=== PATIENT | female | born 1970 | race Caucasian/White ===

== ENCOUNTER 2017-02-14 20:46 | Emergency (ER) | payer OTHER ==
[~2017-02-14] VITALS: Ht 165.1 cm; Wt 87.0 kg
[~2017-02-14 20:46] MED LIST: SERT100T PO; TRAZ-129 PO
[2017-02-14] MEDS ORDERED: LIDOCAINE HCL 1% 20ML VIAL (Pyxis) INJ MC ONE (23:00)
[2017-02-14] MEDS ORDERED: CEFTRIAXONE SODIUM 250 MG/VIAL IM ONE (23:00)
[2017-02-14] MEDS ORDERED: HYDROCODONE/ACETAMINOPHEN 5/325MG TABLET PO ONE (23:30)
[2017-02-15 00:21] VITALS: BP 134/83
== END 2017-02-15 00:23 | disposition home or self-care (01) ==
LOC: ER 02-15 00:11
DX: T81.4XXA Infection following a procedure, initial encounter (principal); I10 Essential (primary) hypertension; Z86.73 Personal history of transient ischemic attack (TIA), and cerebral infarction without residual deficits; Z87.891 Personal history of nicotine dependence
CPT/HCPCS: 96372; 99283; J0696; J3490; Z7610

== ENCOUNTER 2017-02-22 11:43 | Emergency (ER) | payer OTHER ==
[~2017-02-22] VITALS: Ht 165.1 cm; Wt 87.5 kg
[2017-02-22 12:23] LABS: BASOPHILS % 0.7 % (0.0-2.0); EOSINOPHILS % 3.3 % (0.0-5.0); HEMATOCRIT. 37.6 % (36.0-48.0); HEMOGLOBIN. 12.7 g/dL (12.0-16.0); LYMPHOCYTES % 21.2 % (20.0-50.0); MEAN CORPUSCULAR HEMOGLOBIN 29.5 pg (28.0-32.0); MEAN CORPUSCULAR VOLUME 87.3 fL (81.0-99.0); MEAN PLATELET VOLUME 8.1 fl (7.4-10.4); MONOCYTES % 6.5 % (2.0-8.0); NEUTROPHILS % 68.3 % (40.0-76.0); PLATELET 228 x1000/uL (130-400); RED CELL DISTRIBUTION WIDTH 14.6 % (11.6-14.6)
[2017-02-22 12:26] LABS: CHLORIDE 106 mEq/L (98-107)
[2017-02-22 12:34] LABS: CARBON DIOXIDE 27 mEq/L (21-32); ETHANOL BLOOD < 10 mg/dL
[2017-02-22 12:37] LABS: CLARITY URINE CLEAR (CLEAR); COLOR URINE YELLOW (YELLOW); GLUCOSE URINE NEGATIVE (NEGATIVE); KETONES URINE NEGATIVE (NEGATIVE); LEUKOCYTE ESTERASE URINE NEGATIVE (NEGATIVE); NITRITE URINE NEGATIVE (NEGATIVE); OCCULT BLOOD URINE 1+ (NEGATIVE); PH URINE 5.5 (4.5-8.0); PROTEIN URINE NEGATIVE (NEGATIVE); SPECIFIC GRAVITY URINE 1.023 (1.005-1.030)
[2017-02-22 12:59] LABS: *AMPHETAMINES SCREEN URINE NEGATIVE (NEGATIVE); *BARBITURATES SCREEN URINE NEGATIVE (NEGATIVE); *BENZODIAZEPINES SCREEN URINE NEGATIVE (NEGATIVE); *COCAINE SCREEN URINE NEGATIVE (NEGATIVE); CANNABINOID URINE SCREEN NEGATIVE (NEGATIVE); METHADONE URINE SCREEN NEGATIVE (NEGATIVE); PHENCYCLIDINE URINE SCREEN NEGATIVE (NEGATIVE)
[2017-02-22 13:04] LABS: OPIATES URINE SCREEN PRESUMTIVE POSITIVE (NEGATIVE)
[2017-02-22 13:19] LABS: BG BASE EXCESS -0.6 mmol/L (-2.0-2.0); BG CARBOXYHEMOGLOBIN 0.7 % (0.5-1.5); BG DEOXYHEMOGLOBIN 2.8 % (0.0-5.0); BG FRACTION INSPIRED OXYGEN 21; BG HCO3 ACT 23.6 mmol/L (22.0-26.0); BG METHEMOGLOBIN 0.3 % (0.0-1.5); BG OXYGEN SATURATION 97.2 % (92.0-98.5); BG OXYHEMOGLOBIN 96.2 % (94.0-97.0); BG PCO2 37.1 mmHg (35.0-45.0); BG PH 7.421 (7.350-7.450); BG PO2 96.3 mmHg (75.0-100.0); BG SAMPLE SITE LEFT BRACHIAL; BG TOTAL HEMOGLOBIN 12.9 g/dL (12.0-18.0); BG VENT MODE ROOM AIR
[2017-02-22] MEDS ORDERED: KETOROLAC 30MG/ML VIAL IV ONE (13:45)
[2017-02-22 14:56] VITALS: BP 142/90
== END 2017-02-22 16:02 | disposition home or self-care (01) ==
LOC: ER 12:07
DX: S16.1XXA Strain of muscle, fascia and tendon at neck level, initial encounter (principal); S46.912A Strain of unspecified muscle, fascia and tendon at shoulder and upper arm level, left arm, initial encounter; F15.10 Other stimulant abuse, uncomplicated; R51 Headache; I10 Essential (primary) hypertension; F41.9 Anxiety disorder, unspecified; F32.9 Major depressive disorder, single episode, unspecified; Z86.73 Personal history of transient ischemic attack (TIA), and cerebral infarction without residual deficits; Z98.890 Other specified postprocedural states; V49.49XA Driver injured in collision with other motor vehicles in traffic accident, initial encounter; Y93.89 Activity, other specified; Y99.8 Other external cause status; Y92.410 Unspecified street and highway as the place of occurrence of the external cause
CPT/HCPCS: 36415; 36600; 70450; 71010; 72125; 80053; 80305; 81001; 81025; 82375; 82805; 85025; 96374; 99285; G0482; J1885; Z7610

== ENCOUNTER 2017-08-28 13:56 | Emergency (ER) | payer OTHER ==
[~2017-08-28] VITALS: Ht 170.2 cm; Wt 80.0 kg
[2017-08-28] MEDS ORDERED: SODIUM CHLORIDE 0.9% 1,000 ML IV ONE ×2 (14:55→16:45)
[2017-08-28 15:55] LABS: CHLORIDE 106 mEq/L (98-107)
[2017-08-28 16:04] LABS: CARBON DIOXIDE 27 mEq/L (21-32)
[2017-08-28 16:09] LABS: PROTHROMBIN TIME 10.7 sec (9.4-11.6)
[2017-08-28 16:10] LABS: BASOPHILS % 0.5 % (0.0-2.0); EOSINOPHILS % 0.8 % (0.0-5.0); HEMOGLOBIN. 12.1 g/dL (12.0-16.0); LYMPHOCYTES % 21.8 % (20.0-50.0); MEAN CORPUSCULAR HEMOGLOBIN 25.6 pg (28.0-32.0); MEAN CORPUSCULAR VOLUME 78.3 fL (81.0-99.0); MEAN PLATELET VOLUME 8.6 fl (7.4-10.4); MONOCYTES % 7.7 % (2.0-8.0); NEUTROPHILS % 69.2 % (40.0-76.0); PLATELET 385 x1000/uL (130-400); RED BLOOD CELL COUNT 4.72 mill/uL (4.2-5.4); RED CELL DISTRIBUTION WIDTH 17.7 % (11.6-14.6)
[2017-08-28 16:30] LABS: HCG SCREEN NEGATIVE
[2017-08-28] MEDS ORDERED: ONDANSETRON HCL 4MG/2ML VIAL IV STA ×3 (16:45→21:47)
[2017-08-28] MEDS ORDERED: KETOROLAC 30MG/ML VIAL IV STA (16:45)
[2017-08-28] MEDS ORDERED: PANTOPRAZOLE SODIUM 40 MG/VIAL IV STA (16:45)
[2017-08-28 17:38] LABS: CLARITY URINE CLOUDY (CLEAR); COLOR URINE YELLOW (YELLOW); KETONES URINE 2+ (NEGATIVE); LEUKOCYTE ESTERASE URINE NEGATIVE (NEGATIVE); NITRITE URINE NEGATIVE (NEGATIVE); OCCULT BLOOD URINE TRACE (NEGATIVE); PROTEIN URINE 1+ (NEGATIVE); SPECIFIC GRAVITY URINE 1.027 (1.005-1.030)
[2017-08-28 17:57] LABS: *BARBITURATES SCREEN URINE NEGATIVE (NEGATIVE); *BENZODIAZEPINES SCREEN URINE NEGATIVE (NEGATIVE); *COCAINE SCREEN URINE NEGATIVE (NEGATIVE); METHADONE URINE SCREEN NEGATIVE (NEGATIVE); OPIATES URINE SCREEN NEGATIVE (NEGATIVE); PHENCYCLIDINE URINE SCREEN NEGATIVE (NEGATIVE)
[2017-08-28 18:01] LABS: *AMPHETAMINES SCREEN URINE PRESUMTIVE POSITIVE (NEGATIVE); CANNABINOID URINE SCREEN PRESUMTIVE POSITIVE (NEGATIVE)
[2017-08-28] MEDS ORDERED: MORPHINE SULFATE 4 MG/ML CPJ (NOT FOR IM USE) IV STA ×2 (19:31→21:47)
[2017-08-28 23:32] VITALS: BP 100/62
== END 2017-08-28 23:55 | disposition home or self-care (01) ==
LOC: ER 13:56
DX: R10.13 Epigastric pain (principal); I10 Essential (primary) hypertension; F12.10 Cannabis abuse, uncomplicated; F15.10 Other stimulant abuse, uncomplicated; N83.201 Unspecified ovarian cyst, right side; Z87.11 Personal history of peptic ulcer disease; Z98.890 Other specified postprocedural states
CPT/HCPCS: 36415; 74176; 80053; 80305; 81001; 83690; 84703; 85025; 85610; 96361; 96374; 96375; 96376; 99285; C9113; J1885; J2270; J2405; J7030; Z7610

== ENCOUNTER 2018-01-11 19:33 | Emergency (ER) | payer OTHER ==
[~2018-01-11] VITALS: Ht 165.1 cm; Wt 68.0 kg
[2018-01-11] MEDS ORDERED: BACITRACIN ZINC OINT UDPKT TOP ONE (20:45)
[2018-01-11 21:00] LABS: BASOPHILS % 1.1 % (0.0-2.0); EOSINOPHILS % 2.4 % (0.0-5.0); HEMATOCRIT. 32.5 % (36.0-48.0); HEMOGLOBIN. 10.1 g/dL (12.0-16.0); LYMPHOCYTES % 29.8 % (20.0-50.0); MEAN CORPUSCULAR HEMOGLOBIN 21.5 pg (28.0-32.0); MEAN CORPUSCULAR VOLUME 69.1 fL (81.0-99.0); MEAN PLATELET VOLUME 7.6 fl (7.4-10.4); MONOCYTES % 4.6 % (2.0-8.0); NEUTROPHILS % 62.1 % (40.0-76.0); PLATELET 357 x1000/uL (130-400); RED BLOOD CELL COUNT 4.71 mill/uL (4.2-5.4); RED CELL DISTRIBUTION WIDTH 21.1 % (11.6-14.6)
[2018-01-11 21:05] LABS: CHLORIDE 108 mEq/L (98-107)
[2018-01-11 21:08] LABS: ETHANOL BLOOD 249 mg/dL
[2018-01-11 21:36] LABS: PLATELET ESTIMATE NORMAL
[2018-01-11 23:54] LABS: CLARITY URINE CLEAR (CLEAR); COLOR URINE YELLOW (YELLOW); KETONES URINE NEGATIVE (NEGATIVE); LEUKOCYTE ESTERASE URINE NEGATIVE (NEGATIVE); NITRITE URINE NEGATIVE (NEGATIVE); OCCULT BLOOD URINE NEGATIVE (NEGATIVE); PROTEIN URINE NEGATIVE (NEGATIVE); SPECIFIC GRAVITY URINE 1.007 (1.005-1.030); UROBILINOGEN URINE 0.2 E.U./dL (0.2-1.0)
[2018-01-12 00:05] LABS: *AMPHETAMINES SCREEN URINE NEGATIVE (NEGATIVE); *BARBITURATES SCREEN URINE NEGATIVE (NEGATIVE); *BENZODIAZEPINES SCREEN URINE NEGATIVE (NEGATIVE); *COCAINE SCREEN URINE NEGATIVE (NEGATIVE)
[2018-01-12 00:06] LABS: METHADONE URINE SCREEN NEGATIVE (NEGATIVE); OPIATES URINE SCREEN NEGATIVE (NEGATIVE); PHENCYCLIDINE URINE SCREEN NEGATIVE (NEGATIVE)
[2018-01-12 00:09] LABS: CANNABINOID URINE SCREEN PRESUMTIVE POSITIVE (NEGATIVE)
[2018-01-12] MEDS ORDERED: LORAZEPAM 1MG TABLET PO ONE ×2 (00:15→04:00)
[2018-01-12 08:30] VITALS: BP 125/73
== END 2018-01-12 08:49 | disposition home or self-care (01) ==
LOC: ER 19:33
DX: F10.229 Alcohol dependence with intoxication, unspecified (principal); Z86.73 Personal history of transient ischemic attack (TIA), and cerebral infarction without residual deficits; Y90.8 Blood alcohol level of 240 mg/100 ml or more
CPT/HCPCS: 36415; 80048; 80305; 81003; 81025; 85025; 99284; G0482; Z7610

== ENCOUNTER 2018-08-26 15:47 | Inpatient (IN) | payer MEDICARE, OTHER ==
[~2018-08-26] VITALS: Ht 165.1 cm; Wt 73.2 kg
[~2018-08-26 15:47] MED LIST changes: -TRAZ-129 PO; +TRAZ-212 PO
[2018-08-26] MEDS ORDERED: SODIUM CHLORIDE 0.9% 1,000 ML IV ONE (16:37)
[2018-08-26] MEDS ORDERED: ACETAMINOPHEN 325MG TABLET PO ONE (17:30)
[2018-08-26] MEDS ORDERED: ASPIRIN 81MG TABLET PO ONE (17:30)
[2018-08-26 19:22] LABS: CHLORIDE 104 mEq/L (98-107)
[2018-08-26 19:26] LABS: BASOPHILS % 0.6 % (0.0-2.0); EOSINOPHILS % 0.6 % (0.0-5.0); HEMOGLOBIN. 12.2 g/dL (12.0-16.0); LYMPHOCYTES % 18.7 % (20.0-50.0); MEAN CORPUSCULAR HEMOGLOBIN 27.8 pg (28.0-32.0); MEAN CORPUSCULAR VOLUME 84.5 fL (81.0-99.0); MEAN PLATELET VOLUME 8.5 fl (7.4-10.4); MONOCYTES % 6.5 % (2.0-8.0); NEUTROPHILS % 73.6 % (40.0-76.0); PLATELET 364 x1000/uL (130-400); RED BLOOD CELL COUNT 4.38 mill/uL (4.2-5.4); RED CELL DISTRIBUTION WIDTH 19.2 % (11.6-14.6)
[2018-08-26 19:27] LABS: ETHANOL BLOOD < 10 mg/dL
[2018-08-26 19:30] LABS: D-DIMER < 0.19 mg/L FEU (<0.50); INR 1.1; PARTIAL THROMBOPLASTIN TIME 26.3 sec (23.4-31.0); PROTHROMBIN TIME 11.3 sec (9.1-11.1)
[2018-08-26 19:37] LABS: HCG SCREEN NEGATIVE
[2018-08-26] MEDS ORDERED: POTASSIUM CHLORIDE 20MEQ TABLET SR PO ONE (22:00)
[2018-08-27 00:32] VITALS: BP 142/95
[2018-08-27] MEDS ORDERED: DIAZ5TAB MT (01:19)
[2018-08-27] MEDS ORDERED: S350 MT (01:19)
[2018-08-27 04:00] VITALS: BP 130/76
[2018-08-27] MEDS: MORPHINE SULFATE 10MG/5ML ORAL SOLN UDC PO PRN ×3 (04:33→13:12)
[2018-08-27] MEDS: NITROGLYCERIN OINT 1GM/INCH UDPKT TD SCH ×4 (06:47→21:00)
[2018-08-27 08:00] VITALS: BP 125/80
[2018-08-27] MEDS: ASPIRIN 325MG EC TABLET PO SCH (08:42)
[2018-08-27] MEDS ORDERED: POTASSIUM CHLORIDE 20MEQ TABLET SR PO NR (11:15)
[2018-08-27] MEDS: ACETAMINOPHEN 325MG TABLET PO PRN ×2 (11:21→18:14)
[2018-08-27] MEDS: ONDANSETRON HCL 4MG/2ML INJ IV PRN ×2 (11:44→18:14)
[2018-08-27 12:00] VITALS: BP 126/85
[2018-08-27 12:11] LABS: HEMATOCRIT 34.2 % (36.0-48.0); MEAN CORPUSCULAR HEMOGLOBIN 27.4 pg (28.0-32.0); MEAN CORPUSCULAR VOLUME 84.8 fL (81.0-99.0); PLATELET 296 x1000/uL (130-400); RED BLOOD CELL COUNT 4.04 mill/uL (4.2-5.4); RED CELL DISTRIBUTION WIDTH 19.1 % (11.6-14.6)
[2018-08-27 12:20] LABS: CHLORIDE 104 mEq/L (98-107)
[2018-08-27] MEDS: AMLODIPINE 2.5MG TABLET PO SCH ×2 (14:31→23:00)
[2018-08-27 16:00] VITALS: BP 111/69
[2018-08-27 16:24] LABS: CLARITY URINE CLEAR (CLEAR); COLOR URINE YELLOW (YELLOW); KETONES URINE NEGATIVE (NEGATIVE); LEUKOCYTE ESTERASE URINE 2+ (NEGATIVE); NITRITE URINE NEGATIVE (NEGATIVE); OCCULT BLOOD URINE 1+ (NEGATIVE); PH URINE 6.5 (4.5-8.0); PROTEIN URINE NEGATIVE (NEGATIVE); SPECIFIC GRAVITY URINE 1.005 (1.005-1.030); UROBILINOGEN URINE 0.2 E.U./dL (0.2-1.0)
[2018-08-27 16:40] LABS: *BARBITURATES SCREEN URINE NEGATIVE (NEGATIVE); *COCAINE SCREEN URINE NEGATIVE (NEGATIVE)
[2018-08-27 16:41] LABS: METHADONE URINE SCREEN NEGATIVE (NEGATIVE); PHENCYCLIDINE URINE SCREEN NEGATIVE (NEGATIVE)
[2018-08-27 16:49] LABS: *AMPHETAMINES SCREEN URINE PRESUMTIVE POSITIVE (NEGATIVE); *BENZODIAZEPINES SCREEN URINE PRESUMTIVE POSITIVE (NEGATIVE); CANNABINOID URINE SCREEN PRESUMTIVE POSITIVE (NEGATIVE); OPIATES URINE SCREEN PRESUMTIVE POSITIVE (NEGATIVE)
[2018-08-27] MEDS: THIAMINE HCL 100MG TABLET PO SCH (17:12)
[2018-08-27 17:56] LABS: CREATINE KINASE MB FRACTION 2.9 ng/mL (0.5-3.6)
[2018-08-27 20:00] VITALS: BP 119/86
[2018-08-27] MEDS: HYDROCODONE/ACETAMINOPHEN 5/325MG TABLET PO PRN (20:28)
[2018-08-27] MEDS: AMITRIPTYLINE 10MG TABLET PO SCH (21:17)
[2018-08-27] MEDS: ENOXAPARIN 40MG/0.4ML SYR SUBCUT SCH (21:18)
[2018-08-28] VITALS: BP 115/67
[2018-08-28 04:00] VITALS: BP 111/74
[2018-08-28] MEDS: PANTOPRAZOLE 40MG DR TABLET PO SCH (06:31)
[2018-08-28 07:19] LABS: BASOPHILS % 0.5 % (0.0-2.0); EOSINOPHILS % 5.5 % (0.0-5.0); HEMATOCRIT. 34.9 % (36.0-48.0); HEMOGLOBIN. 11.4 g/dL (12.0-16.0); LYMPHOCYTES % 26.8 % (20.0-50.0); MEAN CORPUSCULAR HEMOGLOBIN 27.8 pg (28.0-32.0); MEAN CORPUSCULAR VOLUME 84.8 fL (81.0-99.0); MEAN PLATELET VOLUME 8.4 fl (7.4-10.4); MONOCYTES % 7.8 % (2.0-8.0); NEUTROPHILS % 59.4 % (40.0-76.0); PLATELET 291 x1000/uL (130-400); RED BLOOD CELL COUNT 4.12 mill/uL (4.2-5.4); RED CELL DISTRIBUTION WIDTH 19.5 % (11.6-14.6)
[2018-08-28 07:25] LABS: CHLORIDE 106 mEq/L (98-107)
[2018-08-28 07:36] LABS: CREATINE KINASE 67 IU/L (26-192)
[2018-08-28 07:37] LABS: CREATINE KINASE MB FRACTION 1.6 ng/mL (0.5-3.6)
[2018-08-28 08:00] VITALS: BP 124/82
[2018-08-28] MEDS: THIAMINE HCL 100MG TABLET PO SCH (08:24)
[2018-08-28] MEDS: AMLODIPINE 2.5MG TABLET PO SCH ×2 (08:24→20:00)
[2018-08-28] MEDS: ASPIRIN 325MG EC TABLET PO SCH (08:24)
[2018-08-28] MEDS: NITROGLYCERIN OINT 1GM/INCH UDPKT TD SCH ×4 (08:25→20:01)
[2018-08-28] MEDS: MORPHINE SULFATE 10MG/5ML ORAL SOLN UDC PO PRN ×3 (08:33→19:52)
[2018-08-28 12:00] VITALS: BP 107/73
[2018-08-28] MEDS: CHLORDIAZEPOXIDE 25MG CAPSULE PO SCH ×2 (14:28→21:09)
[2018-08-28 16:00] VITALS: BP 111/80
[2018-08-28 20:00] VITALS: BP 139/58
[2018-08-28] MEDS: ENOXAPARIN 40MG/0.4ML SYR SUBCUT SCH (20:00)
[2018-08-28] MEDS: AMITRIPTYLINE 10MG TABLET PO SCH (20:00)
[2018-08-29] VITALS: BP 111/75
[2018-08-29] MEDS: MORPHINE SULFATE 10MG/5ML ORAL SOLN UDC PO PRN ×4 (00:11→21:08)
[2018-08-29 04:00] VITALS: BP 113/80
[2018-08-29] MEDS: PANTOPRAZOLE 40MG DR TABLET PO SCH (05:45)
[2018-08-29] MEDS: CHLORDIAZEPOXIDE 25MG CAPSULE PO SCH ×3 (05:45→21:07)
[2018-08-29 08:00] VITALS: BP 120/86
[2018-08-29] MEDS: NITROGLYCERIN OINT 1GM/INCH UDPKT TD SCH ×4 (09:00→21:08)
[2018-08-29] MEDS: HYDROCODONE/ACETAMINOPHEN 5/325MG TABLET PO PRN (09:01)
[2018-08-29] MEDS: THIAMINE HCL 100MG TABLET PO SCH (09:01)
[2018-08-29] MEDS: AMLODIPINE 2.5MG TABLET PO SCH ×2 (09:01→21:00)
[2018-08-29] MEDS: ASPIRIN 325MG EC TABLET PO SCH (09:01)
[2018-08-29 12:00] VITALS: BP 95/61
[2018-08-29 12:31] LABS: HEMATOCRIT 37.3 % (36.0-48.0); MEAN CORPUSCULAR HEMOGLOBIN 27.4 pg (28.0-32.0); MEAN CORPUSCULAR VOLUME 85.7 fL (81.0-99.0); PLATELET 284 x1000/uL (130-400); RED BLOOD CELL COUNT 4.36 mill/uL (4.2-5.4); RED CELL DISTRIBUTION WIDTH 19.3 % (11.6-14.6)
[2018-08-29 12:38] LABS: CHLORIDE 105 mEq/L (98-107)
[2018-08-29 16:00] VITALS: BP 110/62
[2018-08-29 20:00] VITALS: BP 103/73
[2018-08-29] MEDS: AMITRIPTYLINE 10MG TABLET PO SCH (21:07)
[2018-08-29] MEDS: ENOXAPARIN 40MG/0.4ML SYR SUBCUT SCH (21:07)
[2018-08-30] VITALS: BP 111/59
[2018-08-30 04:00] VITALS: BP 105/78
[2018-08-30] MEDS: MORPHINE SULFATE 10MG/5ML ORAL SOLN UDC PO PRN (04:21)
[2018-08-30] MEDS: PANTOPRAZOLE 40MG DR TABLET PO SCH (05:45)
[2018-08-30] MEDS: CHLORDIAZEPOXIDE 25MG CAPSULE PO SCH (05:46)
[2018-08-30 08:00] VITALS: BP 127/73
[2018-08-30] MEDS: ASPIRIN 325MG EC TABLET PO SCH (08:05)
[2018-08-30] MEDS: THIAMINE HCL 100MG TABLET PO SCH (08:05)
[2018-08-30] MEDS: AMLODIPINE 2.5MG TABLET PO SCH (08:05)
[2018-08-30] MEDS: NITROGLYCERIN OINT 1GM/INCH UDPKT TD SCH (08:06)
[2018-08-30 08:37] VITALS: BP 120/70
== END 2018-08-30 09:55 | disposition home or self-care (01) | DRG 203 ==
LOC: ER 15:47 → 5WST 21:49 → EDBEDREQTM 23:06 → EDBEDREQ 23:06 → ENRESERV 23:16 → 5WST 08-27 01:31
PROVIDERS: ADMIT Internal Medicine; ATTEND Internal Medicine
PROC: 4A10X4Z Monitoring of Central Nervous Electrical Activity, External Approach (ICD-10-PCS; principal; 2018-08-29)
DX: M94.0 Chondrocostal junction syndrome [Tietze] (principal); G37.9 Demyelinating disease of central nervous system, unspecified; I67.82 Cerebral ischemia; D64.9 Anemia, unspecified; N39.0 Urinary tract infection, site not specified; F10.239 Alcohol dependence with withdrawal, unspecified; G43.909 Migraine, unspecified, not intractable, without status migrainosus; E87.6 Hypokalemia; M79.18 Myalgia, other site; R94.31 Abnormal electrocardiogram [ECG] [EKG]; I10 Essential (primary) hypertension; F19.10 Other psychoactive substance abuse, uncomplicated; F41.9 Anxiety disorder, unspecified; Z86.73 Personal history of transient ischemic attack (TIA), and cerebral infarction without residual deficits; Z87.891 Personal history of nicotine dependence; Z91.048 Other nonmedicinal substance allergy status; Z79.899 Other long term (current) drug therapy; Z71.41 Alcohol abuse counseling and surveillance of alcoholic
CPT/HCPCS: 36415; 70551; 71045; 80048; 80061; 80305; 82550; 82553; 83036; 83605; 83880; 84484; 84703; 85027; 85379; 93005; 93306; 93970; 95816; 96360; 96361; 99285; G0482; J1650; J2405; J7030

== ENCOUNTER 2019-01-30 15:53 | Emergency (ER) | payer MEDICARE, OTHER ==
[~2019-01-30] VITALS: Ht 167.6 cm; Wt 83.0 kg
[~2019-01-30 15:53] MED LIST changes: +DIAZ5TAB MT; +S350 MT; -SERT100T PO; -TRAZ-212 PO
[2019-01-30 20:44] LABS: BASOPHILS % 0.7 % (0.0-2.0); CHLORIDE 106 mEq/L (98-107); EOSINOPHILS % 3.7 % (0.0-5.0); HEMATOCRIT. 38.2 % (36.0-48.0); LYMPHOCYTES % 32.8 % (20.0-50.0); MEAN CORPUSCULAR HEMOGLOBIN 29.4 pg (28.0-32.0); MEAN CORPUSCULAR VOLUME 86.6 fL (81.0-99.0); MEAN PLATELET VOLUME 7.8 fl (7.4-10.4); MONOCYTES % 5.2 % (2.0-8.0); NEUTROPHILS % 57.6 % (40.0-76.0); PLATELET 274 x1000/uL (130-400); RED BLOOD CELL COUNT 4.42 mill/uL (4.2-5.4)
[2019-01-30] MEDS ORDERED: OXYCODONE HCL/ACETAMINOPHEN 5/325MG TABLET PO ONE (21:15)
[2019-01-30 21:16] LABS: CLARITY URINE CLEAR (CLEAR); COLOR URINE YELLOW (YELLOW); KETONES URINE NEGATIVE (NEGATIVE); LEUKOCYTE ESTERASE URINE NEGATIVE (NEGATIVE); NITRITE URINE NEGATIVE (NEGATIVE); OCCULT BLOOD URINE 2+ (NEGATIVE); PROTEIN URINE NEGATIVE (NEGATIVE); SPECIFIC GRAVITY URINE 1.023 (1.005-1.030); UROBILINOGEN URINE 0.2 E.U./dL (0.2-1.0)
[2019-01-31 00:12] VITALS: BP 152/98
== END 2019-01-31 00:13 | disposition home or self-care (01) ==
LOC: ER 15:53
DX: S20.212A Contusion of left front wall of thorax, initial encounter (principal); S70.02XA Contusion of left hip, initial encounter; F41.9 Anxiety disorder, unspecified; I10 Essential (primary) hypertension; M41.9 Scoliosis, unspecified; Z86.73 Personal history of transient ischemic attack (TIA), and cerebral infarction without residual deficits; W18.2XXA Fall in (into) shower or empty bathtub, initial encounter; Y93.E1 Activity, personal bathing and showering; Y92.012 Bathroom of single-family (private) house as the place of occurrence of the external cause
CPT/HCPCS: 36415; 71101; 72131; 73502; 81025; 83880; 84484; 93005; 99284